=== PATIENT | female | born 1985 | race Caucasian/White ===

== ENCOUNTER 2020-03-06 09:44 | Emergency (ER) | payer MEDICAID, SELFPAY ==
[2020-03-06 09:51] VITALS: BP 211/158; PULSE 101; RESP 18; TEMP 36.3; O2SAT 98; BMI 47.2
--- NOTE | 2020-03-06 09:58 | USR_ITS ---
PROCEDURE INFORMATION: Exam: US Pelvis Complete, Transabdominal and US Pelvis, Transvaginal Exam date and time: 03/06/2020 11:30 AM Age: 34 years old Clinical indication: Pelvic pain TECHNIQUE: Imaging protocol: Real-time transabdominal and transvaginal pelvic ultrasound (complete) with image documentation. Transvaginal imaging was used for better evaluation of the endometrium and adnexa. COMPARISON: No relevant prior studies available. FINDINGS: Uterus/cervix: Endometrium measures 6 mm in diameter. Complex fluid in the endocervical canal, which measures 9 mm in diameter. Subcentimeter nabothian cyst. Uterus measures 10.2 x 4.3 by 5.8 cm. Right adnexa: Right ovary measures 2.9 x 1.8 x 2.8 cm. Dominant 11 mm follicle. Right ovarian blood flow demonstrated. Left adnexa: Left ovary measures 2.7 by 2.0 x 3.4 cm. Left ovarian blood flow demonstrated. Free fluid: No significant free fluid. No significant free fluid. Bladder: Nondistended bladder. US/US pelvic with transvaginal IMPRESSION: 1. Complex fluid in the endocervical canal, which measures 9 mm in diameter. 2. Unremarkable sonographic appearance of the ovaries.
--- NOTE | 2020-03-06 10:14 | PC.NURSE ---
Ultrasound at bedside 101
[2020-03-06 10:42] LABS: Bilirubin Urine Neg (NEGATIVE); Blood Urine 3+ (Negative); Glucose Urine UA Norm (Normal); Ketones Urine Negative (Negative); Leukocyte Esterase Urine Negative (Negative); Nitrate Urine Negative (Negative); Protein Urine Neg (Negative); Urine Appearance SL Hazy (CLEAR); Urine Color Yellow (Yellow); Urobilinogen Urine Norm (Negative); pH Urine 5 (5-7)
[2020-03-06 10:45] LABS: Bacteria Urine 2+; Mucus Urine 2+; RBC Urine 15-25 /hpf (0-2); Transitional Epi Cells Urine 0-4 /hpf; WBC Urine 0-4 /hpf (0-5)
[2020-03-06 10:46] LABS: Add Urine Culture? Yes; Fine Granular Casts Urine 0-4 /lpf
[2020-03-06 11:03] LABS: Basophils % 0.5 %; Eosinophils # 0.1 10^3/uL (0.0-0.8); Eosinophils % 2.3 %; Hematocrit 41.9 % (37.0-47.0); Hemoglobin 13.2 g/dL (11.5-15.3); Lymphocytes # 1.8 10^3/uL (0.8-4.8); Lymphocytes % 28.6 %; Mean Corpuscular HGB Conc 31.5 g/dL (30.0-36.0); Mean Corpuscular Hemoglobin 28.3 pg (28.0-34.0); Mean Corpuscular Volume 89.7 fL (81-99); Mean Platelet Volume 11.1 fL (7.4-10.4); Monocytes # 0.3 10^3/uL (0.2-0.9); Monocytes % 4.5 %; Neutrophils % 63.9 %; Nucleated Red Blood Cells % 0 %; Platelet Count 221 10^3/cmm (130-400); Red Blood Count 4.67 10^6/uL (4.1-5.3); White Blood Count 6.2 10^3/uL (4.0-10.0)
[2020-03-06 11:21] LABS: HCG Quantitative 4.06 mIU/mL
[2020-03-06 11:32] LABS: Alanine Aminotransferase 38 U/L (0-33); Albumin Level 4.2 g/dL (3.5-5.2); Alkaline Phosphatase 80 IU/L (35-105); Aspartate Amino Transferase 23 U/L (0-32); Blood Urea Nitrogen 10 mg/dL (6-20); Calcium 9.6 mg/dL (8.5-10.5); Carbon Dioxide 27 mmol/L (22-29); Chloride 102 mmol/L (98-107); Globulin 2.8 g/dL (1.3-4.6); Glomerular Filtration Rate 96.4 mL/min (90-130); Glucose 102 mg/dL (65-115); Magnesium 1.8 mg/dL (1.7-2.3); Osmolality Calculated 284 mOsm/kg (285-295); Sodium 139 mmol/L (136-145); Total Bilirubin 0.4 mg/dL (0.15-1.2)
--- NOTE | 2020-03-06 11:35 | ED_ITS ---
HPI - General: Chief complaint: OB/Uterine Contractions Stated complaint: 5 WEEKS PREG AND SPOTTING Time Seen by Provider: 03/06/20 09:51 Source: patient Mode of arrival: ambulatory Limitations: no limitations History of Present Illness: HPI Narrative: Mariann is a nice 34-year-old female who comes in complaining of spotting. Patient believes herself to be about 5 weeks by dates with this being her fourth . She is had 2 live births and one miscarriage. Patient states the bleeding has just been very mild and spotting. There is been no clots. She denies any lightheadedness, dizziness, syncope or near syncope. Patient denies any abdominal pain but has had some occasional low cramping back pain. She denies any fevers or chills, nausea vomiting, dysuria, hematuria, and she denies any other vaginal discharge. Patient states the symptoms started last night and have continued to today. She is unaware of anything that makes her symptoms better or worse. Patient's not received any care up to this point. Date of Last Menstrual Period: 01/30/20 Associated symptoms: Reports abdominal pain and vaginal bleeding; Deny dysuria, headache(s), malaise, nausea, syncope or vomiting Related Data: : 4 Review of Systems Const: Denies: fever(s), chills, body aches, fatigue, malaise or diaphoresis Eyes: Denies: change in vision, blurry vision, blind spots, photophobia, eye discharge or eye redness ENMT: Denies: throat pain, odynophagia, hoarseness, swelling of lips/tongue, oral sores, ear or mastoid pain, ear discharge, change in hearing or nasal discharge Card: Denies: chest pain, palpitations, irregular heart rhythm, edema, lightheadedness, syncope, pre-syncope, dyspnea on exertion or orthopnea Resp: Denies: dyspnea, productive cough, non-productive cough, wheezing, hemoptysis or chest congestion GI: Reports: abdominal pain; Denies: nausea, vomiting, hematemesis, coffee ground emesis, heartburn, diarrhea, constipation, GI cramping, hematochezia or melena : Reports: vaginal bleeding; Denies: flank pain, dysuria, urinary frequency, urinary urgency or hematuria Musc: Denies: neck pain, back pain, extremity pain, extremity swelling, joint pain, joint swelling, joint redness, joint warmth or joint stiffness Skin/Breast: Denies: rash, pruritus, erythema, skin tenderness or jaundice Neuro: Denies: headache(s), numbness in extremities, weakness in extremities, sensory changes, lack of coordination, difficulty walking, dizziness, vertigo, confusion, Slurred speech present or seizure-like activity Ray/Lymph: Denies: easy bruising, easy bleeding, petechiae, purpura or enlarged lymph nodes All/Imm: Denies: urticaria, throat swelling, tongue swelling, facial swelling or acute wheezing PFSH ED PFSH: Medical History No pertinent past medical history Surgical History Previous section S/P cholecystectomy Female Reproductive History: Date of last menstrual period: 01/30/20 G ravida: 4 Physical Exam Const: COMMON NORMALS: no acute distress, patient oriented x3, no limitations, healthy appearing and well nourished GENERAL APPEARANCE: cooperative, well kempt and well developed HENMT: COMMON NORMALS: normocephalic, atraumatic, external ears normal, EAC's normal and Normal external nose present HEAD & SCALP: normal to inspection, normocephalic and atraumatic FACE & SINUS: normal facial exam and face symmetric NOSE: Normal external nose present and Normal nares present EXTERNAL EAR: Yes external ears normal EXTERNAL AUDITORY CANAL: EAC's normal MOUTH: Normal oral and palatal mucosa present, lip normal and tongue normal Eye: COMMON NORMALS: Equal, round and reactive pupils present and conjunctivae normal GENERAL EYE: appearance normal, both eyes and all related structures ALIGNMENT: Yes alignment normal PERIORBITAL: periorbital findings normal EYELID: eyelids normal CONJUNCTIVA: Yes conjunctivae normal SCLERA: sclerae normal PUPIL: Yes Equal, round and reactive pupils present Neck/C-Spine: COMMON NORMALS: full ROM, no lymphadenopathy, supple, no meningeal signs and no JVD GENERAL: Yes normal visual inspection and Yes trachea midline Chest: COMMONS NORMALS: normal inspection of the chest and normal palpation of entire chest wall Resp: COMMON NORMALS: normal respiratory effort, No retractions and No use of accessory muscles EFFORT & INSPECTION: Yes able to speak in complete sen tences and Yes symmetric chest movement AUSCULTATION: no crackles, no rales, no rhonchi and no wheezes Cardio: COMMON NORMALS: no JVD, regular rate, regular rhythm, S1 normal heart sound present and S2 normal heart sound present RATE: regular rate RHYTHM: regular rhythm HEART SOUNDS: S1 normal heart sound present, S2 normal heart sound present, no click, no gallops, no murmurs, no rubs and abnormal split S2 GI: COMMON NORMALS: Soft to palpation and No hepatosplenomegaly present PALPATION: Yes Soft to palpation, No Tenderness to palpation present (GI), No Guarding due to palpation present (GI), No Rigid due to palpation, Yes No hepatosplenomegaly present, No Hernia present, No Palpable mass present and No Pulsatile mass present : COMMON NORMALS: Yes no CVA tenderness and Yes normal bimanual exam BLADDER/KIDNEY EXAM: Yes no CVA tenderness EXTERNAL FEMALE EXAM: No Hernia present SPECULUM EXAM - VAGINA: Yes vaginal bleeding SPECULUM EXAM - CERVIX: Yes Cervical os closed, Yes Cervical bleeding and No Cervical tenderness present BIMANUAL EXAM - VAGINA & UTERUS: Yes normal bimanual exam, Yes normal palpation, Yes normal palpation, No cervical motion tenderness and No Cervical tenderness present BIMANUAL EXAM - ADNEXA, OTHER: Yes normal adnexae and Yes mobile OB/EXTERNAL & SPECULUM: vaginal bleeding Back/Pelvis: COMMON NORMALS: no CVA tenderness, thoracic and lumbar spine normal to inspection, no thoracic nor lumbar tenderness and thoraco-lumbar ROM normal Extremity: COMMON NORMALS: normal to inspection, full ROM, capillary refill normal, no joint enlargement, no clubbing, cyanosis or edema and no calf tender ness Neuro: COMMON NORMALS: patient oriented x3, CN's II-XII intact bilaterally, moves all extremities, no focal motor deficits and no sensory deficits noted MENINGEAL SIGNS: Yes no meningeal signs SPEECH: speech normal Psych: COMMON NORMALS: mental status grossly normal, Normal thought process present, cooperative, normal affect, speech normal and activity/motor behavior normal APPEARANCE: Yes well kempt SPEECH: Yes normal speech THOUGHT PROCESS: Normal thought process present Skin: COMMON NORMALS: no rashes or lesions noted, turgor normal, no jaundice, no petechiae and no mottling GENERAL SKIN EXAM: no rashes or lesions noted and turgor normal Course Vital Signs: Vital signs: Vital Signs Temperature 97.4 F L 03/06/20 09:51 Pulse Rate 101 H 03/06/20 09:51 Respiratory Rate 18 03/06/20 11:42 Blood Pressure 166/94 03/06/20 11:56 Pulse Oximetry 100 03/06/20 11:56 MDM - OB/Uterine Contractions MDM Narrative: Medical decision making narrative: Patient's hormone is within a normal range. Her ultrasound shows what appears to be the beginnings of a menstrual cycle. It is possible that she had a positive home test and had a miscarriage that is now completing. There is no sign of ectopic or free fluid in the abdomen. On exam the patient cervix was closed with only minimal bleeding. There were no adnexal masses or tenderness. Patient seems disappointed but she understands and she agrees to follow-up with her internet designer as an outpatient return here if her symptoms change or worsen. Patient's back pain is gone and she has no abdominal pain on exam or subjectively. Lab Data: Attestation: I reviewed the patient's lab results. Labs: Lab Results 03/06/20 03/06/20 03/06/20 Range/Units 10:10 10:41 10:41 WBC 6.2 (4.0-10.0) 10^3/ uL RBC 4.67 (4.1-5.3) 10^6/u L Hgb 13.2 (11.5-15.3) g/dL Hct 41.9 (37.0-47.0) % MCV 89.7 (81-99) fL MCH 28.3 (28.0-34.0) pg MCHC 31.5 (30.0-36.0) g/dL RDW 12.0 L (12.1-15.1) % Plt Count 221 (130-400) 10^3/c mm MPV 11.1 H (7.4-10.4) fL Neut % (Auto) 63.9 % Lymph % (Auto) 28.6 % Starr % (Auto) 4.5 % Eos % (Auto) 2.3 % Baso % (Auto) 0.5 % Neut # (Auto) 4.0 (1.8-7.7) 10^3/u L Lymph # (Auto) 1.8 (0.8-4.8) 10^3/u L Starr # (Auto) 0.3 (0.2-0.9) 10^3/u L Eos # (Auto) 0.1 (0.0-0.8) 10^3/u L Baso # (Auto) 0.0 (0.0-0.1) 10^3/u L Nucleated RBC % (a uto) 0 % Nucleated RBCs # 0.0 /100WBC Sodium (136-145) mmol/L Potassium (3.5-5.1) mmol/L Chloride (98-107) mmol/L Carbon Dioxide (22-29) mmol/L Anion Gap (5-19) BUN (6-20) mg/dL Creatinine (0.5-0.9) mg/dL GFR Calculation (90-130) mL/min Glucose (65-115) mg/dL Calculated Osmolal ity (285-295) mOsm/k g Calcium (8.5-10.5) mg/dL Magnesium (1.7-2.3) mg/dL Total Bilirubin (0.15-1.2) mg/dL AST (0-32) U/L ALT (0-33) U/L Alkaline Phosphata se (35-105) IU/L Total Protein (6.6-8.7) g/dL Albumin (3.5-5.2) g/dL Globulin (1.3-4.6) g/dL Ser , Jennie i-Qnt mIU/mL Urine Color Yellow (Yellow) Urine Appearance Sl hazy (CLEAR) Urine pH 5 (5-7) Ur Specific Gravit y 1.020 (1.005-1.030) Urine Protein Neg (Negative) Urine Glucose (UA) Norm (Normal) Urine Ketones Negative (Negative) Urine Blood 3+ H (Negative) Urine Nitrate Negative (Negative) Urine Bilirubin Neg (NEGATIVE) Urine Urobilinogen Norm (Negative) mg/dL Ur Leukocyte Jacquelin ase Negative (Negative) Urine RBC 15-25 H (0-2) /hpf Urine WBC 0-4 H (0-5) /hpf Ur Squamous Epith Cells 5-10 H (0-5) Ur Transition Epit h Cell 0-4 /hpf Urine Bacteria 2+ H (NONE) Hyaline Casts 5-10 H Fine Granular Cast s 0-4 H /lpf Urine Mucus 2+ Blood Type A Positive Rho(D) Type Positive 03/06/20 Range/Units 10:41 WBC (4.0-10.0) 10^3/ uL RBC (4.1-5.3) 10^6/u L Hgb (11.5-15.3) g/dL Hct (37.0-47.0) % MCV (81-99) fL MCH (28.0-34.0) pg MCHC (30.0-36.0) g/dL RDW (12.1-15.1) % Plt Count (130-400) 10^3/c mm MPV (7.4-10.4) fL Neut % (Auto) % Lymph % (Auto) % Starr % (Auto) % Eos % (Auto) % Baso % (Auto) % Neut # (Auto) (1.8-7.7) 10^3/u L Lymph # (Auto) (0.8-4.8) 10^3/u L Starr # (Auto) (0.2-0.9) 10^3/u L Eos # (Auto) (0.0-0.8) 10^3/u L Baso # (Auto) (0.0-0.1) 10^3/u L Nucleated RBC % (a uto) % Nucleated RBCs # /100WBC Sodium 139 (136-145) mmol/L Potassium 4.0 (3.5-5.1) mmol/L Chloride 102 (98-107) mmol/L Carbon Dioxide 27 (22-29) mmol/L Anion Gap 14.0 (5-19) BUN 10 (6-20) mg/dL Creatinine 0.7 (0.5-0.9) mg/dL GFR Calculation 96.4 (90-130) mL/min Glucose 102 (65-115) mg/dL Calculated Osmolal ity 284 L (285-295) mOsm/k g Calcium 9.6 (8.5-10.5) mg/dL Magnesium 1.8 (1.7-2.3) mg/dL Total Bilirubin 0.4 (0.15-1.2) mg/dL AST 23 (0-32) U/L ALT 38 H (0-33) U/L Alkaline Phosphata se 80 (35-105) IU/L Total Protein 7.0 (6.6-8.7) g/dL Albumin 4.2 (3.5-5.2) g/dL Globulin 2.8 (1.3-4.6) g/dL Ser , Jennie i-Qnt 4.06 mIU/mL Urine Color (Yellow) Urine Appearance (CLEAR) Urine pH (5-7) Ur Specific Gravit y (1.005-1.030) Urine Protein (Negative) Urine Glucose (UA) (Normal) Urine Ketones (Negative) Urine Blood (Negative) Urine Nitrate (Negative) Urine Bilirubin (NEGATIVE) Urine Urobilinogen (Negative) mg/dL Ur Leukocyte Jacquelin ase (Negative) Urine RBC (0-2) /hpf Urine WBC (0-5) /hpf Ur Squamous Epith Cells (0-5) Ur Transition Epit h Cell /hpf Urine Bacteria (NONE) Hyaline Casts Fine Granular Cast s /lpf Urine Mucus Blood Type Rho(D) Type Imaging Data^: US: Radiologist's impression: [place] [address] Ultrasound Report Signed Patient: Mariann Hale Unit #: [id number] : 1985 Age/Sex: 34 / F ADM Date: 03/06/20 Loc: ER Room/Bed: Attending Dr: Ordering Provider/Ordering MD: Neema Bowen DO Date of Service: 03/06/20 Procedure(s): US pelvic with transvaginal Accession Number(s): [id number] Report Number: [id number] PROCEDURE INFORMATION: Exam: US Pelvis Complete, Transabdominal and US Pelvis, Transvaginal Exam date and time: 03/06/2020 11:30 AM Age: 34 years old Clinical indication: Pelvic pain TECHNIQUE: Imaging protocol: Real-time transabdominal and transvaginal pelvic ultrasound (complete) with image documentation. Transvaginal imaging was used for better evaluation of the endometrium and adnexa. COMPARISON: No relevant prior studies available. FINDINGS: Uterus/cervix: Endometrium measures 6 mm in diameter. Complex fluid in the endocervical canal, which measures 9 mm in diameter. Subcentimeter nabothian cyst. Uterus measures 10.2 x 4.3 by 5.8 cm. Right adnexa: Right ovary measures 2.9 x 1.8 x 2.8 cm. Dominant 11 mm follicle. Right ovarian blood flow demonstrated. Left adnexa: Left ovary measures 2.7 by 2.0 x 3.4 cm. Left ovarian blood flow demonstrated. Free fluid: No significant free fluid. No significant free fluid. Bladder: Nondistended bladder. US/US pelvic with transvaginal IMPRESSION: 1. Complex fluid in the endocervical canal, which measures 9 mm in diameter. 2. Unremarkable sonographic appearance of the ovaries. Dictated By: Justin Jacobo MD Signed By: Justin Jacobo MD Signed Date/Time: 03/06/20 115 DD/ 115 Discharge Plan Discharge Patient Disposition: Home, Self-Care Clinical Impression: Vaginal bleeding Condition: Stable Prescriptions: No Action 28 mg iron- 800 mcg Tablet 1 tab PO DAILY RF: 0 Discharge Orders: Discharge Order (Routine); Ordered 03/06/20 Ordered By: Neema Bowen Referrals: Kwame Engel MD [Physician] - 1-3 days Discharge Diet: Advance as tolerated Discharge Activity: Increase activity as tolerated Patient Instructions: Menstruation (ED) Activity Restrictions/Additional Instructions: Please return to the ER immediately for any of the signs or symptoms listed on your discharge instruction sheets, worsening/changing of your symptoms, you are not getting better as quickly as expected, or for ANY other cause or concerns. Return to the ER for heavier bleeding, dizziness, lightheadedness, you pass out or nearly pass out, fever, or for any other cause for concern. Coding Level of Care Code ED [employer] Truck [employer] for Chg Fwd Exam Comprehensive
[2020-03-06 11:42] VITALS: RESP 18
[2020-03-06] MEDS: morphine 4 mg/mL SDV 1 mL IVP (11:42)
[2020-03-06] MEDS: sodium chloride 0.9% 1,000 ML 999 ML IV (11:42)
[2020-03-06 11:56] VITALS: BP 166/94; O2SAT 100
[2020-03-06 12:52] VITALS: BP 183/109; PULSE 69; RESP 24; O2SAT 97
== END 2020-03-06 12:45 | disposition home or self-care (01) ==
PROVIDERS: Emergency Provider Emergency Medicine
DX: N93.9 Abnormal uterine and vaginal bleeding, unspecified (principal)
CPT/HCPCS: 12345; 76830; 76856; 80053; 81001; 83735; 84702; 85025; 86900; 87086; 87210; 96360; 96361; 96374; 96375; 99283; J2270; J7030